=== PATIENT | female | born 1970 ===

== ENCOUNTER 2017-04-10 17:55 | Emergency (ER) | payer MEDICAID ==
[2017-04-10 17:55] VITALS: BMI 45.7
[2017-04-10 18:01] VITALS: BP 126/61; PULSE 72; RESP 18; TEMP 97.5; O2SAT 100
[2017-04-10] MEDS ORDERED: Oxycodone/Acetaminophen 5/325 mg Tab PO STA (18:13)
--- NOTE | 2017-04-10 18:17 | ED PDOC ---
Lower Extremity Pain/Injury Time Seen by Provider: 04/10/17 18:02 Chief Complaint (Nursing): Lower Extremity Problem/Injury Chief Complaint (Provider): Right knee pain History Per: Patient History/Exam Limitations: no limitations Current Symptoms Are (Timing): Still Present Additional Complaint(s): 46 y/o female with a past medical history of arthritis of the neck and hypertension who presents to the emergency department with a complaint of a right knee pain x1 week. Patient states she heard a pop while walking and since then the right knee has been hurting. Reports she also hears some cracking once in a while and bending makes it worse. Patient took Tylenol around 1pm for the relief of pain. Denies any previous injuries, fall, or trauma. Past Medical History Reviewed: Historical Data, Nursing Documentation, Vital Signs Vital Signs: Last Vital Signs Temp 97.5 F L 04/10/17 17:58 Pulse 72 04/10/17 17:58 Resp 18 04/10/17 17:58 BP 126/61 04/10/17 17:58 Pulse Ox 100 04/10/17 17:58 - Medical History PMH: HTN - Family History Family History: States: Unknown Family Hx - Home Medications Home Medications: Ambulatory Orders Medication Instructions Recorded Ipratropium 0.02% [Atrovent] 2.5 ml IH Q4 PRN #12 neb 02/25/17 Promethazine DM [Phenergan DM 5 ml PO BID #30 dose 02/25/17 Syrup] predniSONE [predniSONE Tab] 20 mg PO BID #8 tab 02/25/17 Ibuprofen [Motrin] 600 mg PO Q6 #20 tab 04/10/17 oxyCODONE/Acetaminophen [Percocet 1 ea PO Q6 PRN #5 tab 04/10/17 5/325 mg Tab] - Allergies Allergies/Adverse Reactions: Allergies Allergy/AdvReac Type Severity Reaction Status Date / Time moxifloxacin [From Avelox] Allergy URTICARIA Verified 02/25/17 11:52 Review of Systems ROS Statement: Except As Marked, All Systems Reviewed And Found Negative (As per HPI, otherwise negative) Constitutional: Negative for: Other (Fall or trauma) Musculoskeletal: Positive for: Other (Right knee pain) Physical Exam - Reviewed Nursing Documentation Reviewed: Yes Vital Signs Reviewed: Yes - Physical Exam Appears: Positive for: Non-toxic, No Acute Distress Head Exam: Positive for: ATRAUMATIC, NORMAL INSPECTION, NORMOCEPHALIC Skin: Positive for: Normal Color, Warm, Dry Extremity: Positive for: Normal ROM (Full range of motion of the right knee with pain on flexion), Tenderness (Tenderness to the medial aspect of the knee and over the popliteal fossa) Neurologic/Psych: Positive for: Alert, Oriented (x3) - ECG O2 Sat by Pulse Oximetry: 100 (RA) Pulse Ox Interpretation: Normal Medical Decision Making Medical Decision Making: Time: 1814 Initial impression: Right knee pain Initial plan: --Percocet 5/325 mg --Right Knee x-ray --Reevaluation Time: 1899 --X-ray read by me and shows no acute abnormalities Time: 1935 Upon provider reevaluation patient is feeling better, is medically stable, and requires no further treatment in the ED at this time. Patient will be discharged home with Rx for Motrin 600 mg and Percocet 5/325 mg. Counseling was provided and all questions were answered regarding diagnosis and need for follow up with Dr. Mari Reilly MD. There is agreement to discharge plan. Return if symptoms persist or worsen. Clinical Impression: Knee pain Scribe Attestation: Documented by Amy Matt, acting as a scribe for Jane Han PA-C Provider Scribe Attestation: All medical record entries made by the Scribe were at my direction and personally dictated by me. I have reviewed the chart and agree that the record accurately reflects my personal performance of the history, physical exam, medical decision making, and the department course for this patient. I have also personally directed, reviewed, and agree with the discharge instructions and disposition. Disposition - Clinical Impression Clinical Impression: Knee pain Counseled Patient/Family Regarding: Studies Performed, Diagnosis, Need For Followup, Rx Given - Disposition Referrals: Sol Reilly MD [Staff Provider] - Disposition: Routine/Home Disposition Time: 19:36 Condition: STABLE Prescriptions: Ibuprofen [Motrin] 600 mg PO Q6 #20 tab oxyCODONE/Acetaminophen [Percocet 5/325 mg Tab] 1 ea PO Q6 PRN #5 tab PRN Reason: Pain, Severe (8-10) Instructions: Knee Pain (ED) Forms: [employer] (Faroese)
--- NOTE | 2017-04-11 09:49 | RAD ---
PROCEDURE: Right Knee Radiographs. HISTORY: pain COMPARISON: None. FINDINGS: BONES: No fracture. JOINTS: No osteoarthritis. JOINT EFFUSION: None. OTHER FINDINGS: Lateral patellar subluxation -chronicity unknown -can be chronic IMPRESSION: No fracture or anayeli dislocation. Lateral patellar subluxation ; chronicity unknown -can be chronic
== END 2017-04-10 19:41 | disposition home or self-care (01) ==
LOC: H.ER 17:55
DX: M25.561 Pain in right knee (principal); I10 Essential (primary) hypertension

== ENCOUNTER 2017-12-15 15:07 | Emergency (ER) | payer MEDICAID ==
[2017-12-15 15:08] VITALS: BMI 45.7
[2017-12-15 15:18] VITALS: BP 136/78; PULSE 60; RESP 18; TEMP 98.2; O2SAT 100
--- NOTE | 2017-12-15 15:49 | ED PDOC ---
HPI: Back Time Seen by Provider: 12/15/17 15:34 Chief Complaint (Nursing): Back Pain Chief Complaint (Provider): back pain History Per: Patient History/Exam Limitations: no limitations Additional Complaint(s): Chely Coleman, a 46 year old female with a history of a pinched nerve in her neck, presents to the emergency department with back pain. Patient reports an increase in tingling down her arm as well as neck pain. She states she has no issues with strength and denies any recent falls. Patient says she received a steroid injection in [place] but has not take medication here. No further medical complaints Past Medical History Reviewed: Historical Data, Nursing Documentation, Vital Signs Vital Signs: Last Vital Signs Temp 98.2 F 12/15/17 15:15 Pulse 60 12/15/17 15:15 Resp 18 12/15/17 15:15 BP 136/78 12/15/17 15:15 Pulse Ox 100 12/15/17 15:15 - Medical History PMH: HTN Other PMH: pinched nerve in neck - Family History Family History: States: Unknown Family Hx - Home Medications Home Medications: Ambulatory Orders Medication Instructions Recorded Ipratropium 0.02% [Atrovent] 2.5 ml IH Q4 PRN #12 neb 02/25/17 Promethazine DM [Phenergan DM 5 ml PO BID #30 dose 02/25/17 Syrup] predniSONE [predniSONE Tab] 20 mg PO BID #8 tab 02/25/17 Ibuprofen [Motrin] 600 mg PO Q6 #20 tab 04/10/17 oxyCODONE/Acetaminophen [Percocet 1 ea PO Q6 PRN #5 tab 04/10/17 5/325 mg Tab] Methylprednisolone [Medrol Dose 4 mg PO DAILY #21 mg 12/15/17 Pack (21 tabs)] diaZEpam [Valium] 5 mg PO Q8 PRN #6 tab 12/15/17 oxyCODONE/Acetaminophen [Percocet 1 ea PO Q6 PRN #6 tab 12/15/17 5/325 mg Tab] - Allergies Allergies/Adverse Reactions: Allergies Allergy/AdvReac Type Severity Reaction Status Date / Time moxifloxacin [From Avelox] Allergy URTICARIA Verified 12/15/17 15:15 Review of Systems ROS Statement: Except As Marked, All Systems Reviewed And Found Negative Musculoskeletal: Positive for: Neck Pain, Other (tingling down arm) Physical Exam - Reviewed Nursing Documentation Reviewed: Yes Vital Signs Reviewed: Yes - Physical Exam Appears: Positive for: Well, Non-toxic, No Acute Distress Head Exam: Positive for: ATRAUMATIC, NORMAL INSPECTION, NORMOCEPHALIC Cardiovascular/Chest: Positive for: Regular Rate, Rhythm Respiratory: Positive for: Normal Breath Sounds. Negative for: Respiratory Distress Neurologic/Psych: Positive for: Alert, Oriented, Other (5/5 grain receiver strength) Comments: neck left lateral mild spasm noted - ECG O2 Sat by Pulse Oximetry: 100 (RA) Pulse Ox Interpretation: Normal Medical Decision Making Medical Decision Making: Time: 15:34 Initial Impression: Initial Plan: --Toradol 60 mg IM --Valium 5 mg PO Scribe Attestation: Documented by Nicole Perez, acting as a scribe for Celena Delgado PA-C. Provider Scribe Attestation: All medical record entries made by the Scribe were at my direction and personally dictated by me. I have reviewed the chart and agree that the record accurately reflects my personal performance of the history, physical exam, medical decision making, and the department course for this patient. I have also personally directed, reviewed, and agree with the discharge instructions and disposition. Disposition - Clinical Impression Clinical Impression: Cervical radiculopathy - Patient ED Disposition Is Patient to be Admitted: No - Disposition Disposition: Routine/Home Disposition Time: 16:17 Condition: FAIR Prescriptions: diaZEpam [Valium] 5 mg PO Q8 PRN #6 tab PRN Reason: Muscle Spasm Methylprednisolone [Medrol Dose Pack (21 tabs)] 4 mg PO DAILY #21 mg oxyCODONE/Acetaminophen [Percocet 5/325 mg Tab] 1 ea PO Q6 PRN #6 tab PRN Reason: Pain, Severe (8-10) Instructions: Radiculopathy (DC) Forms: [facility] ED School/Work Excuse
== END 2017-12-15 16:27 | disposition home or self-care (01) ==
LOC: H.ER 15:07
DX: M54.12 Radiculopathy, cervical region (principal); I10 Essential (primary) hypertension
CPT/HCPCS: 96372; 99283; J1885